=== PATIENT | male | born 1940 | race Caucasian/White ===

== ENCOUNTER 2016-10-16 13:35 | Day surgery (SDC) | payer OTHER, MEDICAID ==
[2016-10-16] MEDS ORDERED: LR 1,000 ML IV ONE (14:36)
--- NOTE | 2016-10-16 14:55 | PDANEPAE ---
ANE Past Medical History - Cardiovascular History Hx Hypertension: Yes Hx Arrhythmias: Yes Hx Chest Pain: No Hx Coronary Artery / Peripheral Vascular Disease: No Hx CHF / Valvular Disease: No Hx Palpitations: Yes - Pulmonary History Hx COPD: No Hx Asthma/Reactive Airway Disease: No Hx Recent Upper Respiratory Infection: No Hx Oxygen in Use at Home: No - Neurologic History Hx Cerebrovascular Accident: No Hx Seizures: No Hx Dementia: No - Endocrine History Hx Diabetes: No - Renal History Hx Renal Disorders: No - Liver History Hx Hepatic Disorders: No - Neurological & Psychiatric Hx Hx Neurological and Psychiatric Disorders: No - Congenital Disorder History Hx Congenital Disorders: No - GI History Hx Gastrointestinal Disorders: Yes - Chronic Pain History Chronic Pain: No ANE Review of Systems Review of Systems: SOB with walking related to radiation pneumonitis and pulmonary metastases. Colon cancer with mets to lungs only. URI x4 days, resolved 2 days ago - sore throat,post-nasal drip, dry cough. - Exercise capacity METS (RN): 2 METS - Systems Constitutional: Reports: weakness, weight loss EENMT: Reports: nose congestion (resolving) Respiratory: Reports: cough (dry - resolving), shortness of breath Gastrointestinal: Reports: other (ulcers) ANE Patient History - Allergies Allergies/Adverse Reactions: POLLENS, GRASSES Allergy (Mild, Uncoded 02/07/16 10:50) Other-Enter Comments - Home Medications Home Medications: CIMETIDINE 300 mg PO TID 10/03/12 [Last Taken 04/11/13 11:59] Metoprolol Tartrate 25 mg PO DAILY 10/03/12 [Last Taken 04/11/13 11:59] Louise Allergy 180 - 240 mg PO DAILY PRN 02/07/16 [Last Taken Unknown] Aspirin 81mg (*) 81 mg PO DAILY 02/07/16 [Last Taken Unknown] Dietary Supplement 3,000 mg PO DAILY 02/07/16 [Last Taken Unknown] Dietary Supplement 15 drops PO DAILY 02/07/16 [Last Taken Unknown] Fish Oil 1 tab PO DAILY 02/07/16 [Last Taken Unknown] Glucosamine 3 tab PO DAILY 02/07/16 [Last Taken Unknown] IBUPROFEN 400 mg PO Q8H PRN 02/07/16 [Last Taken Unknown] Lisinopril 20 mg PO DAILY 02/07/16 [Last Taken Unknown] Prednisone 15 mg PO DAILY 02/07/16 [Last Taken Unknown] Proscar 5 MG (*) 5 mg PO DAILY 02/07/16 [Last Taken Unknown] Saw [place] 820 mg PO DAILY 02/07/16 [Last Taken Unknown] - NPO status NPO Since - Liquids (Date): 10/16/16 NPO Since - Liquids (Time): 10:00 (water with pills) NPO Since - Solids (Date): 10/16/16 NPO Since - Solids (Time): 09:00 (nectarines) - Anes Hx Anes Hx: no prior problems - Smoking Hx Smoking Status: Former smoker (quit x33 years) - Family Anes Hx Family Anes Hx: none Family Hx Anesthesia Complications: NONE ANE Labs/Vital Signs - Vital Signs Blood Pressure: 162/90 Heart Rate: 42 O2 Sat (%): 95 Height: 167.64 cm Weight: 61.235 kg ANE Physical Exam - Airway Neck exam: FROM Mallampati Score: Class 3 Mouth exam: poor dentition, small mouth opening - Pulmonary Pulmonary: expiratory wheeze - Cardiovascular Cardiovascular: regular rate and rhythym - ASA Status ASA Status: IV (current metastatic colon cancer on chemotherapy) ANE Anesthesia Plan Anesthesia Plan: GA with mask
[2016-10-16] MEDS ORDERED: ALBUTEROL 3 ML DEYVIAL IH ONE (15:05)
--- NOTE | 2016-10-16 15:05 | PDGENHP ---
History & Physical Chief Complaint: abdo pain History of Present Illness: abdo pain and RUQ pain Pertinent Past, Social, Family History: phx alpa met from colon. doesn't smkoe nor drink now Relevant Physical Exam: s1s2, reg rate, +murmer. exp wheeze, no rales no rhonchi. +BS, soft, tender Cardiorespiratory Assessment: exp wheeze, s1 s2 +BS, soft tender
[2016-10-16] MEDS ORDERED: LIDOCAINE 2% 5 ML SDV ONE (15:16)
[2016-10-16] MEDS ORDERED: PROPOFOL/EMULSION 500 MG/50 ML BOTTLE IV ONE (15:16)
[2016-10-16] MEDS ORDERED: fentaNYL 100 MCG/2 ML INJ ONE (15:16)
[2016-10-16] MEDS ORDERED: NALOXONE HCL 0.4 MG/ML INJ IVP PRN (15:51)
[2016-10-16] MEDS ORDERED: ALBUTEROL 3 ML DEYVIAL IH PRN (15:51)
[2016-10-16] MEDS ORDERED: PROMETHAZINE HCL 25 MG/ML INJ IVP PRN (15:51)
[2016-10-16] MEDS ORDERED: ENALAPRILAT DIHYDRATE 1.25 MG/ML VIAL IVP PRN (15:51)
[2016-10-16] MEDS ORDERED: DEXAMETHASONE 4 MG/ML VIAL IVP PRN (15:51)
[2016-10-16] MEDS ORDERED: fentaNYL 100 MCG/2 ML INJ IVP PRN (15:51)
[2016-10-16] MEDS ORDERED: ACETAMINOPHEN 500 MG TAB PO PRN (15:51)
--- NOTE | 2016-10-16 15:59 | POSTANESTH ---
Post Anesthetic Evaluation Cardiovascular Status: Normal, Stable Respiratory Status: Similar to Pre-op Cond. Level of Consciousness/Mental Status: Can Participate in Eval, Moderately Sleepy Pain Control: Adequate, Prn Tx Ordered Nausea/Vomiting Control: Adequate, Prn Tx Ordered Complications Possibly Related to Anesthesia: None Noted
[2016-10-16 16:13] VITALS: TEMP 97.5
--- NOTE | 2016-10-16 16:23 | POSTOPPROG ---
Post Op Note Date of Operation: 10/16/16 Surgeon: Bk Alvarado Anesthesiologist: lori Anesthesia: Other (Specify) (iv general) Pre-op Diagnosis: abdo pain Post-op Diagnosis: gastritis Indication: abdo pain Procedure: egd and bx Findings: gastritis Inf/Abcess present in the surg proc area at time of surgery?: No EBL: Minimal (few ml) Complications: none immediate
[2016-10-16 16:59] VITALS: BP 149/83; PULSE 45; RESP 14; O2SAT 94
--- NOTE | 2016-10-16 17:41 | GPN ---
[f rep st] PROCEDURE NOTE DATE OF PROCEDURE: 10/16/2016 PROCEDURE: Esophagogastroduodenoscopy and biopsy. INDICATION: Abdominal pain, both epigastric and right upper quadrant. PREOPERATIVE DIAGNOSIS: Rule out ulcer. POSTOPERATIVE DIAGNOSES: 1. Normal esophagus. 2. Mild gastritis with no significant ulceration and no masses. 3. Normal duodenum with no ulcerations. 4. Large Bochdalek hernia with a significant portion of the stomach and intestines in the chest cav ity. INFORMED CONSENT: I had a detailed discussed with the patient regarding the procedure, alternatives , benefits, and risks including bleeding, perforation, infection, risk of medication. Informed cons ent was signed and witnessed. COMPLICATIONS: None immediate. MEDICATIONS: IV general per Leydi Mcintosh MD. DESCRIPTION OF PROCEDURE: After adequate anesthesia, patient remained in left lateral decubitus pos ition, and forward viewing upper endoscope was inserted in the oropharynx and advanced under direct visualization down the esophagus. The esophageal mucosa was normal. The endoscope was advanced in the stomach. There was obviously significant deformity with a good portion of the stomach higher up in the chest cavity. The patient does have a known Bochdalek hernia. It was difficult to access t he antrum, but by advancing the scope almost to the hilt, I was able to advance around this large ab normally shaped stomach and through the pylorus. The duodenal bulb and sweep were normal. I withdr ew the stomach back into the antrum. There was some mild gastritis in the antrum and distal body. Biopsies were obtained. There were no masses or ulcerations. The endoscope was completely withdraw n confirming the above findings. The patient tolerated the procedure well and was transferred to [facility] in satisfactory condition. IMPRESSION: 1. [id number] gastritis. 2. Normal esophagus. 3. Normal duodenal. 4. No ulcerations and no masses. 5. Large Bochdalek hernia with a significant portion of the stomach up in the chest cavity. This h as been documented on previous imaging studies. RECOMMENDATIONS: 1. Continue PPI therapy. 2. As much as possible try to avoid aspirin and nonsteroidal anti-inflammatory drugs except as used for cardiac or stroke prevention. 3. If symptoms worsen, come to the office for further evaluation. 4. Further recommendations to follow results of above and clinical course. 5. Follow up with primary care and referring physician as scheduled. Thank you for allowing me to participate in this patient's healthcare. Do not hesitate to call with any questions. /[id number]/MODL
== END 2016-10-16 17:20 | disposition home or self-care (01) ==
LOC: FSGY 13:35
PROVIDERS: ATTEND Internal Medicine Gastroenterology
PROC: 0DB68ZX Excision of Stomach, Via Natural or Artificial Opening Endoscopic, Diagnostic (ICD-10-PCS; principal; 2016-10-16 15:00)
DX: K29.70 Gastritis, unspecified, without bleeding (principal); K44.9 Diaphragmatic hernia without obstruction or gangrene; C18.9 Malignant neoplasm of colon, unspecified; C78.00 Secondary malignant neoplasm of unspecified lung; Z87.891 Personal history of nicotine dependence
CPT/HCPCS: J2704; J3010

== ENCOUNTER → 2016-11-10 | Outpatient (CLI) | payer OTHER, MEDICAID ==
[~2016-11-10] MED LIST: GADOBUTROL 10 ML VIAL IVP ONE
== END ==
LOC: FIMAGING 08:27
PROVIDERS: ATTEND Internal Medicine Hematology & Oncology
DX: R94.02 Abnormal brain scan (principal); R41.0 Disorientation, unspecified; C18.4 Malignant neoplasm of transverse colon
CPT/HCPCS: 70553; A9585

== ENCOUNTER 2016-11-22 10:50 | Emergency (ER) | payer OTHER, MEDICAID ==
[2016-11-22 11:02] VITALS: RESP 16
[2016-11-22] MEDS ORDERED: NS 500 ML IV ONE (11:47)
--- NOTE | 2016-11-22 12:00 | EDPHY ---
H & P Time Seen by Provider: 11/22/16 11:07 HPI/ROS: HPI Brain tumor, tingling in hands. 76-year-old male by private vehicle with family member. This patient has a history of colon cancer with extensive metastasis to the liver, lungs and brain. He has a 3 cm x 3 cm x 3 cm metastasis to his right parietal area that was imaged last on an MRI from November 10. He was to have a a craniectomy removal of this right parietal mass this last Wednesday. He ended up declining this surgery. He was sent home against his neurosurgeons advice. This is Dr. Maldonado. He was told to return to the emergency department for any nausea, vomiting or neurologic symptoms. He reports that last night he had a transient episode of some tingling in his left hand nausea but no vomiting. He had another 1 of these episodes this morning. On presentation to the emergency department he denies any nausea. He has not had any vomiting he denies any tingling in his extremities or other neurologic symptoms. ROS: Constitutional: No fever, no chills. No weakness. Eyes: No discharge. No changes in vision. ENT: No sore throat. No nasal congestion or rhinorrhea. Respiratory: No cough. No shortness of breath. Cardiac: No chest pain, no palpitations. Gastrointestinal: No abdominal pain, no vomiting, no diarrhea. As above. Genitourinary: No hematuria. No dysuria or increased frequency with urination. Musculoskeletal: No back pain. No neck pain. No myalgias or arthralgias. Skin: No rashes. Neurological: No headache. No focal weakness or altered sensation. As above. Past medical history: Hypertension, otherwise as above. He is currently on Decadron. Social history: Here with his friend. Nonsmoker. Denies alcohol. Physical Exam: General Appearance: Alert, no distress. Frail and thin in appearance. This patient is responding to questions appropriately and in full sentences. This patient appears well-hydrated and well-nourished. Eyes: Pupils equal and round no pallor or injection. No lid edema, erythema or injection. Respiratory: There are no retractions, lungs are clear to auscultation with good air movement bilaterally. Cardiovascular: Regular rate and rhythm. No murmur. Gastrointestinal: Abdomen is soft and nontender, no masses, bowel sounds normal. No focal tenderness at McBurney's point. No Mathew sign. Neurological: Motor sensory function is grossly intact. Cranial nerves are normal. Gait is normal. Skin: Warm and dry, no rashes. Musculoskeletal: Neck is supple and nontender. Extremities are symmetrical. All joints range without pain or impingement. Psychiatric: No agitation. No depression. Database: EKG: EKG time is 12:15 a.m.: EKG shows a narrow complex, sinus bradycardia with ventricular rate of 44. 1st degree AV block noted. Right bundle branch block noted. No ST, T-wave changes indicative of acute ischemic or injury pattern. No evidence of right heart strain. Interpreted by me. Imaging: Procedures: Emergency department course: MRI with and without contrast of the brain from November 10 reviewed by myself. His vital signs were reviewed. 12 noon, spoke with his neurosurgeon Dr. Maldonado. Dr. Maldonado requested that if he is not on Keppra he put on Keppra at 750 mg daily. He is to continue his Decadron as prescribed and see Dr. Maldonado in the office early this week. Dr. Maldonado does not feel that the patient requires imaging in the emergency department. An EKG will be performed basic labs and troponin checked. If this is unremarkable, plan will be to discharge him home with follow up with Dr. Maldonado as above. 1:20 p.m., patient re-evaluated. He is resting comfortably at this time. Results of his blood work as well as EKG were discussed with him and his friend. He feels comfortable going home and I feel he is safe for discharge. He is to follow up with his neurosurgeon as above tomorrow for further management. Return to emergency department precautions were discussed with him. All of his questions were answered. He was discharged home in good condition. Differential Diagnosis: The differential diagnosis on this patient includes but is not limited to metastatic colon cancer, brain metastasis, nausea, transient paresthesia. CVA, TIA, acute coronary syndrome unlikely. This represents a partial list of diagnoses considered. These considerations are based on history, physical exam , past history, reassessment and diagnostic testing. Smoking Status: Former smoker Constitutional: Initial Vital Signs Temperature (C) 36.5 C 11/22/16 11:00 Heart Rate 45 L 11/22/16 11:00 Respiratory Rate 16 11/22/16 11:00 Blood Pressure 148/74 H 11/22/16 11:00 O2 Sat (%) 95 11/22/16 11:00 O2 Delivery Mode Room Air Allergies/Adverse Reactions: POLLENS, GRASSES Allergy (Mild, Uncoded 02/07/16 10:50) Other-Enter Comments Home Medications: Medication Instructions Recorded CIMETIDINE 300 mg PO TID 10/03/12 Metoprolol Tartrate 25 mg PO DAILY 10/03/12 Louise Allergy 180 - 240 mg PO DAILY PRN 02/07/16 Aspirin 81mg (*) 81 mg PO DAILY 02/07/16 Dietary Supplement 3,000 mg PO DAILY 02/07/16 Dietary Supplement 15 drops PO DAILY 02/07/16 Fish Oil 1 tab PO DAILY 02/07/16 Glucosamine 3 tab PO DAILY 02/07/16 IBUPROFEN 400 mg PO Q8H PRN 02/07/16 Lisinopril 20 mg PO DAILY 02/07/16 Prednisone 15 mg PO DAILY 02/07/16 Proscar 5 MG (*) 5 mg PO DAILY 02/07/16 Saw [place] 820 mg PO DAILY 02/07/16 Medical Decision Making - Data Points Laboratory Results: Laboratory Results 11/22/16 12:00 11/22/16 12:00 Medications Given: Discontinued Medications Sodium Chloride (Ns) 500 mls @ 0 mls/hr IV ONCE ONE; Wide Open PRN Reason: Protocol Stop: 11/22/16 11:48 Last Admin: 11/22/16 12:04 Dose: 500 mls Departure - Departure Disposition: Home, Routine, Self-Care Clinical Impression: Brain mass, Metastatic colon cancer to liver, Transient paresthesia, Nausea Condition: Good Instructions: Paresthesia (ED) Additional Instructions: Read and follow provided instructions. Follow-up with your neurosurgeon as discussed within the next 1-2 days. He is aware that your here in the emergency department. He is expecting to see you in that time frame. Call his office tomorrow morning at 9:00 a.m. for appointment time. Return to the emergency department for worsening headache, vomiting, loss of sensation or weakness in your extremities, chest pain, shortness of breath or other serious concerns. Referrals: Walter Maldonado MD [Medical Doctor] - As per Instructions
[2016-11-22 12:11] LABS: % IMMATURE GRANULYOCYTES 0.9 % (0.0-1.1); ABSOLUTE IMMATURE GRANULOCYTES 0.07 10^3/uL (0.00-0.10); ABSOLUTE NRBC COUNT 0.03 10^3/uL (0-0.01); ADD DIFF? NO; ADD MORPH? NO; ADD SCAN? NO; ATYPICAL LYMPHOCYTE FLAG 0 (0-99); FRAGMENT RBC FLAG 0 (0-99); HEMATOCRIT 28.3 % (40.0-51.0); LEFT SHIFT FLG 10 (0-99); LIPEMIA HEMOLYSIS FLAG 90 (0-99); MEAN CELL HEMOGLOBIN 37.2 pg (27.9-34.1); MEAN CELL HEMOGLOBIN CONCENTR. 35.3 g/dL (32.4-36.7); MEAN CELL VOLUME 105.2 fL (81.5-99.8); MEAN PLATELET VOLUME 10.6 fL (8.7-11.7); NRBC-AUTO% 0.4 % (0.0-0.2); PLATELET CLUMPS FLAG 0 (0-99); PLATELET COUNT 139 10^3/uL (150-400); RED BLOOD CELL COUNT 2.69 10^6/uL (4.40-6.38)
--- NOTE | 2016-11-22 12:17 | CPEKG ---
Heart Rate: 44 RR Interval: 1364 P-R Interval: 232 QRSD Interval: 130 QT Interval: 520 QTC Interval: 445 P [place]: 32 QRS [place]: 33 T Wave [place]: 17 EKG Severity - ABNORMAL ECG - EKG Impression: SINUS BRADYCARDIA EKG Impression: FIRST DEGREE AV BLOCK EKG Impression: RIGHT BUNDLE BRANCH BLOCK Electronically Signed By: Mj Ren 22-Nov-2016 15:33:43
[2016-11-22 12:26] LABS: ANION GAP 10 mEq/L (8-16); CALCIUM 8.2 mg/dL (8.5-10.4); CARBON DIOXIDE 20 mEq/l (22-31); CHLORIDE 108 mEq/L (97-110); GLOMERULAR FILTRATION RATE > 60; GLUCOSE 146 mg/dL (70-100); POTASSIUM 4.6 mEq/L (3.5-5.2); SODIUM 138 mEq/L (134-144)
[2016-11-22 12:38] LABS: TROPONIN I < 0.012 ng/mL (0-0.034)
[2016-11-22 13:43] VITALS: BP 106/78; PULSE 52; TEMP 98.1; O2SAT 96
== END 2016-11-22 13:43 | disposition home or self-care (01) ==
DX: C79.31 Secondary malignant neoplasm of brain (principal); C18.9 Malignant neoplasm of colon, unspecified; C78.7 Secondary malignant neoplasm of liver and intrahepatic bile duct; C78.00 Secondary malignant neoplasm of unspecified lung; I10 Essential (primary) hypertension; E86.9 Volume depletion, unspecified; Z79.82 Long term (current) use of aspirin; Z87.891 Personal history of nicotine dependence

== ENCOUNTER → 2016-12-16 | Outpatient (CLI) | payer OTHER, MEDICAID | LOC: BHFA 13:30 | PROVIDERS: ATTEND Internal Medicine Cardiovascular Disease | DX: R06.02 Shortness of breath (principal); I10 Essential (primary) hypertension; I47.1 Supraventricular tachycardia; R00.2 Palpitations ==

== ENCOUNTER → 2016-12-28 | Outpatient (CLI) | payer OTHER, MEDICAID | LOC: BHFA 09:15 | PROVIDERS: ATTEND Internal Medicine Cardiovascular Disease ==

== ENCOUNTER → 2017-02-04 | Outpatient (CLI) | payer OTHER, MEDICAID | LOC: FIMAGING 14:33 | PROVIDERS: ATTEND Internal Medicine Hematology & Oncology | DX: C79.31 Secondary malignant neoplasm of brain (principal); J01.00 Acute maxillary sinusitis, unspecified | CPT/HCPCS: 70553; A9585 ==

== ENCOUNTER → 2017-04-15 | Outpatient (CLI) | payer OTHER, MEDICAID | LOC: FIMAGING 15:29 | PROVIDERS: ATTEND Internal Medicine Hematology & Oncology | DX: Z08 Encounter for follow-up examination after completed treatment for malignant neoplasm (principal); C79.31 Secondary malignant neoplasm of brain; C18.9 Malignant neoplasm of colon, unspecified | CPT/HCPCS: 70553; A9585 ==

== ENCOUNTER 2017-06-23 12:32 | Inpatient (IN) | payer OTHER, MEDICAID ==
--- NOTE | 2017-06-23 13:37 | CPEKG ---
Heart Rate: 123 RR Interval: 488 QRSD Interval: 128 QT Interval: 372 QTC Interval: 533 QRS [place]: 104 T Wave [place]: -33 EKG Severity - ABNORMAL ECG - EKG Impression: WIDE COMPLEX TACHYCARDIA EKG Impression: NONSPECIFIC INTRAVENTRICULAR CONDUCTION DELAY Electronically Signed By: Wiliam Meade 23-Jun-2017 14:44:42
--- NOTE | 2017-06-23 13:57 | EDPHY ---
H & P Time Seen by Provider: 06/23/17 13:50 HPI/ROS: Chief complaint. Balance problems, weakness, falls HPI. 76-year-old male presents emergency department after multiple falls in the last 24 hr. He fell twice yesterday and once today. He tells me he spent the night on the floor and could not get up. Generalized weakness. Decreased appetite. Denies injury from his falls. No chest pain, shortness of breath, abdominal pain. Increasing balance and weakness problems. Patient has metastatic colon cancer with mets to brain. MRI on April 15 shows progressive intracranial metastatic disease. He is no longer taking any medication for brain edema. ROS Constitutional. Generalized weakness Eyes. no problems with vision ENT. no sore throat, no nasal drainage Cardiovascular. no chest pain Respiratory. no shortness of breath, no cough Abdominal. no abdominal pain, no nausea/vomiting, no diarrhea . no problems urinating MS. no calf pain/swelling, no neck/back pain, no joint pain Skin. no rash Lymph. no swollen glands Neuro. Balance problems Past Medical/Surgical History: Colon cancer with mets to lung and brain, hypertension Social History: Lives alone. Nonsmoker, single, no alcohol Smoking Status: Former smoker Physical Exam: General Appearance: Alert well-developed male mild distress vital signs are stable Eyes: Pupils equal and round no pallor or injection. ENT, mucous membranes are dry Respiratory: There are no retractions, lungs are clear to auscultation. Cardiovascular: Regular rate and rhythm. Gastrointestinal: Abdomen is soft and nontender, no masses, bowel sounds normal. Neurological: Awake and alert, sensory and motor exams grossly normal. Skin: Warm and dry, no rashes. Musculoskeletal: Neck is supple nontender. Extremities symmetrical, full range of motion. Psychiatric: Patient is oriented X 3, there is no agitation. Constitutional: Initial Vital Signs Temperature (C) 37 C 06/23/17 12:39 Heart Rate 75 06/23/17 12:39 Respiratory Rate 18 06/23/17 12:39 Blood Pressure 134/81 H 06/23/17 12:39 O2 Sat (%) 95 06/23/17 12:39 O2 Delivery Mode Room Air Allergies/Adverse Reactions: POLLENS, GRASSES Allergy (Mild, Uncoded 06/23/17 12:54) Other-Enter Comments Home Medications: Medication Instructions Recorded CIMETIDINE 300 mg PO TID 10/03/12 Metoprolol Tartrate 25 mg PO DAILY 10/03/12 Aspirin 81mg (*) 81 mg PO DAILY 02/07/16 Lisinopril 20 mg PO DAILY 02/07/16 Proscar 5 MG (*) 5 mg PO DAILY 02/07/16 [place] 06/23/17 Medical Decision Making - Diagnostics EKG Interpretation: EKG interpreted by me shows wide complex tachycardia that appears to be junctional. Normal axes. No significant ST elevation or depression. Interventricular conduction delay. Rate is 123 On the monitor patient's heart rate goes from 47-125. Imaging Results: Imaging Impressions Chest X-Ray 06/23/17 14:14 Impression: Increase in opacification and scarring in the medial right lower lobe and middle lobe which could represent progressive scarring, atelectasis, or infiltrate. Clearing of the right upper lobe infiltrate. Stable cardiomegaly. Other chronic findings as above. Head CT 06/23/17 14:15 Impression: 1. Interval progression of intracranial metastatic lesions on the right with increase in vasogenic edema and right to left shift. 2. No acute intracranial abnormality seen. Findings discussed with Wiliam Meade M.D. at 15:09 hour, 06/23/2017. Chest x-ray interpreted by me shows metastasis to the right lung. CT brain without contrast reviewed by me and discussed with Dr. Jewell shows edema with right to left shift Procedures: IV normal saline, monitor ED Course/Re-evaluation: Re-evaluation 3:15 p.m.. Patient and I discussed imaging and lab results. We discussed treatment plan including use of IV Decadron and need for admission. He expresses understanding and agreement Patient is given IV Decadron I consulted discussed case with Dr. Desai, hospitalist, who agrees to the admission This I consulted and discussed the case with Dr. Gillette who agrees with care and will see the patient in consultation Differential Diagnosis: The patient has known brain metastasis. He is not on Decadron any longer for the past 2 months. He now has balance troubles. I considered intracranial bleeding as well as further metastasis and vasogenic edema. - Data Points Laboratory Results: Laboratory Results 06/23/17 13:37 06/23/17 13:37 06/23/17 06/23/17 06/23/17 13:37 13:37 13:37 WBC 3.80 10^3/uL 10^3/uL (3.80-9.50) RBC 3.20 10^6/uL L 10^6/uL (4.40-6.38) Hgb 10.8 g/dL L g/dL (13.7-17.5) Hct 31.9 % L % (40.0-51.0) MCV 99.7 fL fL (81.5-99.8) MCH 33.8 pg pg (27.9-34.1) MCHC 33.9 g/dL g/dL (32.4-36.7) RDW 13.2 % % (11.5-15.2) Plt Count 188 10^3/uL 10^3/uL (150-400) MPV 10.8 fL fL (8.7-11.7) Neut % (Auto) 69.1 % % (39.3-74.2) Lymph % (Auto) 20.0 % % (15.0-45.0) Bond % (Auto) 9.2 % % (4.5-13.0) Eos % (Auto) 1.1 % % (0.6-7.6) Baso % (Auto) 0.3 % % (0.3-1.7) Nucleat RBC Rel Count 0.0 % % (0.0-0.2) Absolute Neuts (auto) 2.63 10^3/uL 10^3/uL (1.70-6.50) Absolute Lymphs (auto) 0.76 10^3/uL L 10^3/uL (1.00-3.00) Absolute Monos (auto) 0.35 10^3/uL 10^3/uL (0.30-0.80) Absolute Eos (auto) 0.04 10^3/uL 10^3/uL (0.03-0.40) Absolute Basos (auto) 0.01 10^3/uL L 10^3/uL (0.02-0.10) Absolute Nucleated RBC 0.00 10^3/uL 10^3/uL (0-0.01) Immature Gran % 0.3 % % (0.0-1.1) Immature Gran # 0.01 10^3/uL 10^3/uL (0.00-0.10) PT 14.0 SEC SEC (12.0-15.0) INR 1.06 (0.83-1.16) Sodium 139 mEq/L mEq/L (135-145) Potassium 3.9 mEq/L mEq/L (3.5-5.2) Chloride 104 mEq/L mEq/L (97-110) Carbon Dioxide 23 mEq/l mEq/l (22-31) Anion Gap 12 mEq/L mEq/L (8-16) BUN 22 mg/dL mg/dL (7-23) Creatinine 1.3 mg/dL mg/dL (0.7-1.3) Estimated GFR 54 Glucose 106 mg/dL H mg/dL (70-100) Calcium 9.7 mg/dL mg/dL (8.5-10.4) Creatine Kinase 924 IU/L H IU/L (0-224) CK-MB (CK-2) Fraction 5.47 ng/mL H ng/mL (0.00-4.55) CK-MB (CK-2) % 0.6 % % (0.0-4.0) Creatine Kinase Interp NEGATIVE (NEGATIVE) Troponin I < 0.012 ng/mL ng/mL (0.000-0.034) Medications Given: Discontinued Medications Sodium Chloride (Ns) 1,000 mls @ 0 mls/hr IV ONCE ONE; Wide Open PRN Reason: Protocol Stop: 06/23/17 14:15 Last Admin: 06/23/17 14:31 Dose: 1,000 mls Sodium Chloride (Ns) 1,000 mls @ 0 mls/hr IV EDNOW ONE; Wide [place] PRN Reason: Protocol Stop: 06/23/17 14:15 Last Admin: 06/23/17 14:31 Dose: 1,000 mls Sodium Chloride (Ns) 1,000 mls @ 0 mls/hr IV ONCE ONE PRN Reason: Wide Open Stop: 06/23/17 14:20 Last Admin: 06/23/17 14:29 Dose: Not Given Departure - Departure Disposition: [facility] Clinical Impression: Brain metastasis Rhabdomyolysis Qualifiers: Rhabdomyolysis type: traumatic Encounter type: initial encounter Qualified Code (s): T79.6XXA - Traumatic ischemia of muscle, initial encounter Condition: Fair
[2017-06-23] MEDS ORDERED: NS 1,000 ML IV ONE ×3 (14:14→14:19)
[2017-06-23 14:22] LABS: PLATELET COUNT 188 10^3/uL (150-400)
[2017-06-23 14:27] LABS: CREATINE KINASE 924 IU/L (0-224)
[2017-06-23 14:33] LABS: INR 1.06 (0.83-1.16)
--- NOTE | 2017-06-23 15:16 | CPEKG ---
Heart Rate: 91 RR Interval: 659 QRSD Interval: 132 QT Interval: 444 QTC Interval: 547 QRS [place]: 62 T Wave [place]: -9 EKG Severity - ABNORMAL ECG - EKG Impression: ATRIAL FIBRILLATION EKG Impression: RIGHT BUNDLE BRANCH BLOCK Electronically Signed For: Josh Terry 23-Jun-2017 15:28:41
--- NOTE | 2017-06-23 15:19 | CPEKG ---
Heart Rate: 49 RR Interval: 1224 P-R Interval: 252 QRSD Interval: 134 QT Interval: 436 QTC Interval: 394 P [place]: 54 QRS [place]: 51 T Wave [place]: 22 EKG Severity - ABNORMAL ECG - EKG Impression: SINUS BRADYCARDIA EKG Impression: FIRST DEGREE AV BLOCK EKG Impression: RIGHT BUNDLE BRANCH BLOCK Electronically Signed For: Josh Terry 23-Jun-2017 15:29:10
[2017-06-23] MEDS ORDERED: DEXAMETHASONE 10 MG/ML VIAL IVP ONE (15:22)
[2017-06-23] MEDS ORDERED: ONDANSETRON 4 MG/2 ML VIAL IVP PRN (16:04)
[2017-06-23] MEDS ORDERED: ONDANSETRON DISINTEGRATING 4 MG TAB PO PRN (16:04)
[2017-06-23] MEDS ORDERED: NS 1,000 ML IV SCH (16:15)
--- NOTE | 2017-06-23 17:25 | ASMTLACE ---
CONSTANTINE Acuity / Level of Answers: Yes Care: Did the patient have an inpatient admission? Comorbidities - select Answers: Any tumor (including all that apply lymphoma or leukemia) History of falls # of Emergency department Answers: 1-2 visits in the last 6 months Score: 9 Date Signed: 06/23/2017 05:24 PM Electronically Signed By:Analisa Flores RN
[2017-06-23] MEDS ORDERED: TIPIRACIL HCL PO SCH (17:30)
[2017-06-23] MEDS ORDERED: TRIFLURIDINE PO SCH (17:30)
--- NOTE | 2017-06-23 17:31 | GCON ---
[f rep st] CONSULTATION CONSULTATION/HISTORY AND PHYSICAL DATE OF CONSULTATION: 06/23/2017 The patient is seen in the emergency department on 06/23/2017 at 1620 by neurosurgical service. CHIEF COMPLAINT: Balance problems, weakness, falls. HISTORY OF PRESENT ILLNESS: The patient is a 76-year-old male who is a prior patient of Dr. Walter courtney at [facility] who presented to the emergency department after multiple fall s in the last 24 hours. He fell twice yesterday and once today. He told the emergency room physicia n that he spent the night on the floor and could not get up. His general complaints are that of weak ness. He has no focal weakness, just a generalized feeling. He states he has had a decreased appeti te as well. He was on Decadron, but there are reports that he has discontinued this. The patient wa s seen in the emergency department and the emergency room physician ordered a CT scan of the head and we were consulted from Neurosurgery due to its findings. The ER physician, Dr. Meade, gave him 10 mg of Decadron. 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 His last MRI of the brain was in April, which showed progressive intracranial metastatic disease. He has a pending MRI of the brain today. He is no longer taking any other medications prescribed f or some edema that he has, which was the Decadron. The patient denies any loss of bowel or bladder c ontrol. No problems with his gait. He does have balance issues. REVIEW OF SYSTEMS: A complete review of systems as noted above, noted for the following: No headache . No double vision. Some generalized weakness. No changes in vision. The patient denies any cough or sore throat. No shortness of breath. No chest pain. No abdominal pain. No nausea, vomiting. No diarrhea. No problems with urination or moving his bowels. He denies any significant rash. No s uicidality or homicidality. PAST MEDICAL HISTORY AND SURGICAL HISTORY: 1. Colon cancer with mets to the lung and brain. 2. History of apparent craniotomy with debulking. 3. Hypertension. MEDICATIONS: Please see med rec form. ALLERGIES: Pollen grasses. SOCIAL HISTORY: Patient lives alone. He is a nonsmoker. He is single and does not drink any alcoho l. He was a former smoker in the past. IMMUNIZATIONS: Reported up to date. TRAVEL: No recent travel. PHYSICAL EXAM: GENERAL: This is an awake, alert and oriented male, in no acute distress. MOST RECE NT VITAL SIGNS: Blood pressure 177/74 with a MAP of 108, heart rate of 50, respiratory rate of 18, 9 5% on room air. Most recent temperature 36.5. HEENT: Normocephalic, atraumatic. Pupils are equal, round, reactive to light. EOMs intact. Full visual elena by confrontation. Ears are patent. Nos e is patent. NECK: Soft and supple. No midline tenderness. Full range of motion in flexion, exten jacquie, lateral bending and rotation. RESPIRATORY: Deferred. CARDIAC: Deferred. ABDOMEN: Soft, no ntender. No peritoneal signs. : Deferred. RECTAL: Deferred. NEURO: The patient is awake, susu rt, oriented to name, place, location, date, time, and situation. Memory is intact to immediate, pas t, and current events. Speech: No aphasia, dysarthria, dysphonia. Cranial nerves 2-[address] Motor: Patient has 5/5 strength in all muscle groups bilateral upper and lower extremities to i nclude deltoids, biceps, triceps, brachioradialis, wrist flexion extensors, flooring helper intrinsic fingers, i liopsoas, quadriceps, hamstring, plantar flexion, dorsiflexion, EHL testing. Sensation is grossly in tact to light touch throughout all dermatome distributions upper and lower extremities. Negative str aight leg raise. Negative GAL test. MEDICAL DECISION MAKING: LABORATORY TESTS: Obtained 06/23/2017, shows a white count of 3.8 with a hemoglobin and hematocrit o f 10.8 and 31.9 with a platelet count of 188. Coags on 06/23/2017 shows a PT of 14.0, INR of 1.06. Chemistry on 06/23/2017: Sodium 139, potassium 3.9, chloride 104, CO2 23, BUN 22, creatinine 1.3, an d glucose 106. Creatine kinase was negative. Troponin less than 0.012. DIAGNOSTIC STUDIES: Chest x-ray obtained 06/23/2017 shows increase in opacifications, scarring in th e medial right lower lobe and middle lobe which could represent progressive scarring, atelectasis or infiltrate. Clearing of the right upper lobe infiltrate, stable cardiomegaly. Other chronic finding s such as the large hernia noted on the left is similar in appearance and dextrose scoliotic curvatur e of the spine was noted. CT scan of the head obtained 06/23/2017 at 1415, shows interval progression of intracranial metastase s and metastatic lesions in the right with increase in vasogenic edema and kirxk-[id number] shift. No i ntracranial hemorrhage noted. IMPRESSION: 1. History of colon cancer with metastasis to lung and brain. 2. New onset of weakness that is generalized, as well as recurrent falls. 3. Interval progression of metastatic lesions to the brain noted with increase in vasogenic edema. PLAN/DISCUSSION: The patient is a 76-year-old male who has the unfortunate diagnosis of metastatic c olon cancer. He has been a patient of Dr. Maldonado who will see the patient as well. He will be admit hakan to the internal medicine service. The ER physician gave the patient 10 mg of Decadron. We will continue with 4 mg q.6 of Decadron. He will need an MRI of the brain with and without contrast as we ll. If these orders have not been placed I will place them in the computer. The patient be admitted , likely oncology consulted as well. I did relay this information to the patient as well. He unders tood and agreed. All questions and concerns were answered. /[id number]/MODL
--- NOTE | 2017-06-23 17:49 | ASMTCMCOM ---
CM Note CM Note Notes: Patient to be admitted with metastatic (brain and lung) colon cancer. Lives alone and has had several falls over the past 24 hours. Stopped Decadron 2 months ago. Swelling on head CT with shift, balance issues increasing. Patient lives alone in an apartment in [facility]. I have met with patient's brother Karlos while patient was in the restroom/prior to his transfer upstairs. He is very supportive and lives close by. Patient has a case management assistant with forensic social worker, Joanne Alexander who has worked with patient for over 3 years. Karlos has contacted her regarding admission Patient has been resistant to "hospice" in the past and has desired to stay home without additional help. Karlos states that patient was at [facility] in December after surgery and did like his stay there. Karlos believes that patient may consider transition back to [facility] if he is eligible. I spoke with Karlos about possible palliative care consult while patient is in the hospital, if patient is open to this. Karlos believes that talking with and including Joanne (MAUREEN) may be helpful. CM to follow and be available with any discharge planning and referrals prn Date Signed: 06/23/2017 05:48 PM Electronically Signed By:Analisa Flores RN
--- NOTE | 2017-06-23 17:56 | GHP ---
[f rep st] HISTORY AND PHYSICAL DATE OF ADMISSION: 06/23/2017 HISTORY OF PRESENT ILLNESS: The patient is a pleasant 76-year-old gentleman with a history of colon cancer with metastases to the lung and brain, who presents with a fall. He recently completed some w hole-brain radiation. He is also taking an oral chemotherapeutic agent called trifluridine/tipiracil . He has been eating and drinking poorly which he attributes to his chemotherapeutic agent. Last ni ght, he fell down. He had a couple falls actually. He does not describe any focal weakness. He yusuf s not describe palpitations or loss of consciousness, and then he was unable to get up and lay on the ground for a couple of hours. When he comes in here, he is alert and mentating. He has a history of known intracranial metastases as evidenced by MRI done here in April. He has not been on dexamethasone in quite some time. He did have a previous episode of having metastases wi th cognitive impairment, which he denies at this time. REVIEW OF SYSTEMS: Complete 10-point review of systems conducted, negative except as noted in the HP I. PAST MEDICAL HISTORY: 1. Likely atrial fibrillation. 2. BPH. 3. Colon cancer with metastases to the brain and lungs. ALLERGIES: Pollens and grasses. MEDICATIONS: At home; metoprolol, aspirin, finasteride, multivitamin, omeprazole and trifluridine/ti piracil chemotherapeutic agent. SOCIAL HISTORY: He quit smoking a number of years ago, like 30 years ago. He is originally from [place]. Denies alcohol. Works as a drug and alcohol counselor. Currently lives alone. He has a bro ther in town. FAMILY HISTORY: Parents . PHYSICAL EXAMINATION: VITAL SIGNS: Temp 36.6, blood pressure 138/107, pulse 75-124. Breathing 18 t imes a minute, 97% on room air. GENERAL: No acute distress. HEENT: Sclerae anicteric. Oropharynx clear. Mucous membranes moist. NECK: Supple without lymphadenopathy or JVD. LUNGS: Clear to aus cultation bilaterally. HEART: S1, S2. ABDOMEN: Soft, nontender, nondistended. LOWER EXTREMITIES: No edema. Calves nontender. He is notable for having some muscle wasting in his legs. NEUROLOGIC : Nonfocal. LABORATORY: Sodium 139, potassium 3.9, chloride 104, bicarb 20, BUN 22, creatinine 1.3 baseline, glu cose 106. CK slightly elevated at 924. Coags are normal. White count 3.8, hematocrit 32 baseline, platelets are 188,000. EKG: Initial EKG shows likely atrial fibrillation it 123 although it may be an SVT, it is fairly reg ular. There is a right bundle branch block pattern. Subsequent EKG showed sinus victoria with a simila r QRS morphology. He also has right atrial enlargement. This rate is low at 49. When I was in his room his rates were in the 40s. A noncontrast head CT performed by the emergency department shows interval progression of intracrania l metastatic disease on the right with increased vasogenic edema and [id number] shift, is about 7 mm. There was no bleeding. Chest x-ray interpreted by me, shows right lower lobe mass as well as right middle lobe. I discussed the case with Dr. Wiliam Meade. ASSESSMENT/PLAN: A 76-year-old gentleman with metastatic colon cancer presents with falls, elevated CK and abnormal EKG. 1. Falls. I suspect this is weakness related. Relatively benign neuro exam could given his head CT . We will have physical therapy and occupational therapy see him. 2. Intracranial metastases with midline shift. This is concerning. He received 10 mg of dexamethas one. I will continue him at to q.6. Neurosurgery will see him. He is not somnolent. 3. Bradycardia. The patient takes a beta ange. It certainly could be outbound telemarketing representative of elevated intracranial pressure and a [place] reflex however, given his 50 mg twice daily of metoprolol, I billy l go ahead and stop that and follow. We will follow him on telemetry. 4. Tachyarrhythmia. I suspect this is atrial fibrillation given his history. He is not anticoagula hakan. I will hold his metoprolol and follow. He may need alternative rate control if he is truly rap id. 5. Right lower lobe mass. I suspect this is evidence of his well known cancer with pulmonary metast ases. He has not had infectious symptoms, we will not treat with antibiotics. 6. Prophylaxis. Pharmacologic prophylaxis indicated. CODE STATUS: Do not resuscitate. DISPOSITION: Inpatient status. I have notified Dr. Wiliam Mathews of his admission. /[id number]/MODL
[2017-06-23] MEDS: DEXAMETHASONE 4 MG/ML VIAL IVP SCH ×2 (18:42→23:22)
[2017-06-23] MEDS ORDERED: GADOBUTROL 10 ML VIAL IVP ONE (21:07)
[2017-06-23] MEDS ORDERED: MELATONIN 3 MG TAB PO PRN (22:19)
[2017-06-23] MEDS ORDERED: DIAZEPAM 5 MG TAB PO ONE (23:12)
[2017-06-24 04:37] LABS: PLATELET COUNT 156 10^3/uL (150-400)
[2017-06-24 04:43] LABS: CREATINE KINASE 430 IU/L (0-224)
[2017-06-24] MEDS: DEXAMETHASONE 4 MG/ML VIAL IVP SCH ×3 (06:03→21:43)
--- NOTE | 2017-06-24 07:10 | NEUSURGPN ---
Assessment/Plan: Assessment: 76 yo male that is a patient of Dr Chand for metastatic colon cancer that presented to ED with weakness/balance issues Plan: -weakness and balance issues: started on decadron and pt states he feels a "bit better" -MRI of the brain was done after a CT that showed increased edema and mets that shows 3 lesions noted on the right sided to the right frontal, parietal and occipital lobes with associated shift -neuro stable -I will review the MRI with Dr Maldonado to see if we can offer any surgical treatments but likely will defer to Oncology/IM for medical management -Dr Maldonado saw patient yesterday and spoke with brother who is in agreement as well -call with any questions or concerns -pt understands and agrees Subjective: Awake and alert. NAD. Eating/drinking and voiding. No new complaints. No f/c /n/v/d. No dawkins/neck/chest/abd or gu complaints. Objective: AAO x 3, PERRLA/EOMI no droop CN 2-12 grossly intact +lt touch 5/5 BUE/BLE = Neuro Check Frequency: per routine Urinary Catheter in Place: No - Physician Discussed Patient with Dr.: Maldonado Neurosurgery Physical Exam - Vitals, I&O, Labs I and O 06/23/17 06/24/17 06/25/17 05:59 05:59 05:59 Intake Total 3200 Output Total 800 Balance 2400 Weight 50.7 kg Intake: Oral (ml) 200 IV Infused (ml) 3000 Ns 1,000 ml @ 125 mls/hr 1000 IV CONT LESLEY Rx#: [id number] Output: Urine (ml) 800 Bedside Commode 800 Other: Intake Quantity Yes Sufficient Number of Voids 3 Bedside Commode 2 Vital Signs Temp Pulse Resp BP Pulse Ox 36.6 C 39 L 12 171/83 H 100 06/24/17 04:00 06/24/17 04:00 06/24/17 04:00 06/24/17 04:00 06/24/17 04:00 Laboratory Results 06/24/17 03:43 06/24/17 03:43 ICD10 Worksheet Patient Problems: Problems Problem Status Onset Brain metastasis Acute Rhabdomyolysis Acute colon cancer Active
[2017-06-24] MEDS ORDERED: ASPIRIN EC 81 MG TAB PO SCH (09:00)
[2017-06-24] MEDS ORDERED: Herbals/Supplements -Info Only PO SCH (09:00)
--- NOTE | 2017-06-24 09:32 | PDMN ---
Medical Necessity Medical necessity: est los>2mn s/p fall r/t weakness, in setting of colon CA w/ intracranial mets w/midline shift, bradycardia, and tachyarrythmia; admit for IV Decadron, medication adjustments, PT/OT; other comorbidities of lung mets, likely afib; per order and H&P 06/23/17
[2017-06-24] MEDS: PANTOPRAZOLE SODIUM 40 MG TAB PO SCH ×2 (09:38→21:21)
[2017-06-24] MEDS: FINASTERIDE 5 MG TAB PO SCH (09:39)
[2017-06-24] MEDS: MULTIVITAMINS 1 EACH TAB PO SCH (09:39)
[2017-06-24] MEDS: ENOXAPARIN 30 MG/0.3 ML SYR SC SCH (09:41)
--- NOTE | 2017-06-24 14:18 | ASMTCMCOM ---
CM Note CM Note Notes: CM met w/ brother and discussed discharge plans. Therapies have been ordered. OT is recommending SNF. Brother would like a referral made to [facility]. Brother reports that pt has been there in the past and had a good experience. Brother would like a palliative. CM communicated this w/ Dr. Molina. Referral sent to [facility]. CM to follow. Plan: [facility] Date Signed: 06/24/2017 02:18 PM Electronically Signed By:ANNE-MARIE Lao
--- NOTE | 2017-06-24 14:37 | HOSPPROG ---
Hospitalist Progress Note Assessment/Plan: 76 yo male with hx of metastatic colon cancer with brain mets and hx of afib admitted s/p fall. Found to also have tachy/victoria #Metastatic colon cancer with new mets to right side of brain #Brain Mets with Vasogenic Edema, R -->L shift, and associated weakness #Tachy/Victoria with hx of Afib -Holding Metoprolol #s/p Fall. Hx indicative of due to neurological weakness. Unclear how much Bradycardia contributed, ?syncope #Leukopenia, no fever, no e/o infection. Negative ROS #Weakness, PT/OT eval #constipation, will start Mirilax Plan: -NS following, no planned interventions -Cards consult, I will call them -Hold Metoprolol -No AC given fall. I will also stop Aspirin. No hx of CAD -Cont Decadron -PT/OT -Start stool softner -Monitor Labs Subjective: Strengh is better. Walked with OT earlier. Still weak, but improving. No CP or SOB Objective: Vital Signs Temp Pulse Resp BP Pulse Ox 37.1 C 47 L 12 138/94 H 93 06/24/17 12:00 06/24/17 12:00 06/24/17 12:00 06/24/17 12:00 06/24/17 12:00 Laboratory Results 06/24/17 03:43 06/24/17 03:43 06/23/17 06/24/17 06/25/17 05:59 05:59 05:59 Intake Total 3200 Output Total 800 Balance 2400 PT 14.0 SEC (12.0-15.0) 06/23/17 13:37 INR 1.06 (0.83-1.16) 06/23/17 13:37 - Physical Exam Constitutional: no apparent distress, chronically ill appearing Eyes: PERRL, EOMI Ears, Nose, Mouth, Throat: moist mucous membranes, hearing normal Cardiovascular: bradycardia, No edema Respiratory: no respiratory distress, no rales or rhonchi Gastrointestinal: normoactive bowel sounds, soft, non-tender abdomen Skin: warm Musculoskeletal: generalized weakness Neurologic: AAOx3 Psychiatric: interacting appropriately, not anxious, not encephalopathic Lymph, Heme, Immunologic: No petechiae ICD10 Worksheet Patient Problems: Problems Problem Status Onset Brain metastasis Acute Rhabdomyolysis Acute colon cancer Active
--- NOTE | 2017-06-24 18:56 | GCON ---
[f rep st] CONSULTATION PRIMARY ONCOLOGIST: Aung Chand MD REASON FOR VISIT: Evaluation and management of colorectal cancer. HISTORY OF PRESENT ILLNESS: Ra is a 76-year-old gentleman who was initially diagnosed April 03 with a stage IIIB cancer. It was resected and then he received adjuvant FOLFOX chemotherapy but only tolerated 2 cycles and then had to stop due to side effects. July 2013, he developed metastati c disease and he was on panitumumab through early 2015. He had a brief trial of regular Afatinib, bu t then developed disease progression. Also during this time he had stereotactic radiotherapy to 2 pu lmonary nodules in June 2014. Since March 2016, he has been on LONSURF with stable disease an d reasonable tolerance. In October 2016, he was having some difficulty with getting lost while driving, disorientation, but no headaches or nausea, vomiting. Brain MRI revealed a 3.3 cm right parietal br ain met with surrounding vasogenic edema. He had this resected by Dr. Aris Corrigan and then adjuvant s tereotactic radiotherapy in January. He then resumed LONSURF in January. CT showed some possibl e progression but it was probably when he was off treatment. A followup MRI in April showed new a reas of intracranial disease including right occipital and right frontal lobe lesion with mild vasoge india edema. He was treated by Dr. Del Rio with 10 fractions of palliative whole-brain radiation. Thi s finished late April or early May. He was just seen in the office about a week ago, generall y doing well with no new neurologic symptoms. Last couple days, he has noticed he has been a bit mor e clumsy and his balance is off. He had about 2 or 3 falls, the last 1 he had difficulty getting up and it took him about an hour to work his way to his bedroom to where he could pull himself up into t he bed. He denied any nausea, vomiting, or headaches. Since admission he has been on dexamethasone and he thinks he is feeling better. ALLERGIES: Pollens and grass. HOME MEDICATIONS: Include LONSURF (trifluridine/tipiracil), multivitamins, omeprazole, metoprolol, a spirin, and finasteride. CHRONIC ILLNESSES: 1. Metastatic colon cancer as per HPI. 2. BPH. 3. History of atrial fibrillation. SURGICAL HISTORY: Primarily as per HPI. SOCIAL HISTORY: Originally from [place]. He is single, lives alone. He is a retired social case w josé miguel. He has a brother who lives locally. He previously smoked, not currently. He does not drink alcohol. FAMILY HISTORY: Positive for some renal carcinoma, but no family history of colorectal cancer. REVIEW OF SYSTEMS: 10-point review of systems performed. Pertinent positives HPI, otherwise negativ e. PHYSICAL EXAM: VITAL SIGNS: Temperature is 36.4, pulse is 51, blood pressure is 150/80. GENERAL: He is a chronically ill-appearing gentleman but he is awake and alert, in no distress. HEENT: Scler ae nonicteric. Extraocular muscles are intact. Oral mucosa is unremarkable. LUNGS: Clear. CARDIA C: Regular. ABDOMEN: Soft, nontender. NEUROLOGICAL: He has got good strength both upper and lowe r extremities with no focal findings. LABORATORY: On arrival, hemoglobin is 9.2, white count is 2000 with an ANC of 1700, platelet count i s normal. Chemistry panel, CK was up a little bit at 924, but that is already coming down to 430. Brain MRI, which I reviewed with Radiology, showed no acute bleed. There are 3 right cerebral metast ases involving the right frontal lobe, right parietal lobe and right occipital lobes with significant increasing vasogenic edema and mass-effect. The lesions seem to have increased in size. IMPRESSION: 1. Metastatic colon cancer. 2. Worsening brain metastasis with vasogenic edema. I spoke with Dr. Del Rio, who has reviewed the scan. Couple of these could possibly be considered fo r stereotactic radiotherapy. He is recommending we get him on steroids and then follow up and see ho w he does. If he is relatively stable, perhaps repeat the MRI in a few weeks. Although it seems a l ittle less likely it is possible this is a treatment effect result from the previous radiation that m ight improve with time. /[id number]/MODL
[2017-06-24] MEDS ORDERED: DEXAMETHASONE 4 MG TAB PO SCH (21:00)
[2017-06-25 04:25] LABS: PLATELET COUNT 146 10^3/uL (150-400)
[2017-06-25] MEDS: DEXAMETHASONE 4 MG/ML VIAL IVP SCH ×2 (05:52→12:12)
[2017-06-25] MEDS: PANTOPRAZOLE SODIUM 40 MG TAB PO SCH ×2 (10:17→20:31)
[2017-06-25] MEDS: MULTIVITAMINS 1 EACH TAB PO SCH (10:17)
[2017-06-25] MEDS: FINASTERIDE 5 MG TAB PO SCH (10:17)
[2017-06-25] MEDS: ENOXAPARIN 30 MG/0.3 ML SYR SC SCH (10:18)
--- NOTE | 2017-06-25 10:48 | NEUSURGPN ---
Assessment/Plan: Assessment: 76 yo male that is a patient of Dr Chand for metastatic colon cancer that presented to ED with weakness/balance issues Plan: -weakness and balance issues: started on decadron and pt states he feels significantly imporved -MRI of the brain was done after a CT that showed increased edema and mets that shows 3 lesions noted on the right sided to the right frontal, parietal and occipital lobes with associated shift -neuro stable -NS will not plan on any surgical intervention at this time. Patient understands. Dr Maldonado has discussed this with pts brother as well -NS will plan to sign off and follow peripherally if OK with hospitalits/onc. -OK for DC from NS standpoint -D/w Dr Maldonado -call with any questions or concerns -pt understands and agrees Subjective: Pt resting in bed, states he feels much improved Objective: AAOx3 NAD VSS MAEx4 Motor 5/5 BUE/BLE +LT Urinary Catheter in Place: No - Physician Discussed Patient with : [facility] Neurosurgery Physical Exam - Vitals, I&O, Labs I and O 06/24/17 06/25/17 06/26/17 05:59 05:59 05:59 Intake Total 3200 350 Output Total 800 Balance 2400 350 Weight 50.7 kg Intake: Oral (ml) 200 350 IV Infused (ml) 3000 Ns 1,000 ml @ 125 mls/hr 1000 IV CONT LESLEY Rx#: [id number] Output: Urine (ml) 800 Bedside Commode 800 Other: Intake Quantity Yes Yes Sufficient Number of Voids 3 Bedside Commode 2 Number of Stools Bedside Commode 1 Vital Signs Temp Pulse Resp BP Pulse Ox 36.4 C 38 L 18 153/81 H 100 06/25/17 07:51 06/25/17 07:51 06/25/17 07:51 06/25/17 07:51 06/25/17 07:51 Laboratory Results 06/25/17 03:29 06/25/17 03:29 ICD10 Worksheet Patient Problems: Problems Problem Status Onset Brain metastasis Acute Rhabdomyolysis Acute colon cancer Active
--- NOTE | 2017-06-25 13:31 | SOAPPROG ---
SOAP Progress Note Assessment/Plan: E&M colon cancer * Brain mets with increase vasogenic edema: started on steroids and doing better. will continue and then repeat MRI to see if truly progressing. I spoke with Dr. Quinones (xrt) and Dr. Chand. * Met. colon cancer: disease otherwise stable on Lonsurf. Will continue. Subjective: Upset that IV dex switched to PO without talking to him. Feeling ok. Would like to consider SNF after d/c. Objective: Vital Signs Temp Pulse Resp BP Pulse Ox 36.4 C 42 L 19 143/75 H 98 06/25/17 11:09 06/25/17 11:09 06/25/17 11:09 06/25/17 11:09 06/25/17 11:09 Laboratory Results 06/25/17 03:29 06/25/17 03:29 06/24/17 06/25/17 06/26/17 05:59 05:59 05:59 Intake Total 3200 350 Output Total 800 Balance 2400 350 PT 14.0 SEC (12.0-15.0) 06/23/17 13:37 INR 1.06 (0.83-1.16) 06/23/17 13:37 Physical Exam - Physical Exam General Appearance: no apparent distress ICD10 Worksheet Patient Problems: Problems Problem Status Onset Brain metastasis Acute Rhabdomyolysis Acute colon cancer Active
--- NOTE | 2017-06-25 14:23 | ASMTCMCOM ---
CM Note CM Note Notes: CM met w/ Karlos, brother for dispo planning. Karlos reports that pt cannot return home. Karlos reports that pt is unable to care for himself. Karlos reports that pt is forgetful and have been yelling at him. Karlos reports that he is the MDPOA. Karlos would like to obtain guardianship. CM provided Karlos w/ senior blue book and resource to obtain guardianship. Karlos reports that pt is not interested in going to [facility] at this time. CM communicated this info to and BEAU Comer. CM available for changes. Plan: TBD Date Signed: 06/25/2017 02:23 PM Electronically Signed By:ANNE-MARIE Lao
--- NOTE | 2017-06-25 15:12 | HOSPPROG ---
Hospitalist Progress Note Assessment/Plan: 76 yo male with hx of metastatic colon cancer with brain mets and hx of afib admitted s/p fall. Found to also have tachy/victoria. Per EMR Hr was 27. He appears to not be symptomatic. #Metastatic colon cancer with new mets to right side of brain #Brain Mets with Vasogenic Edema, R -->L shift, and associated weakness #Tachy/Victoria with hx of Afib -Holding Metoprolol #s/p Fall. Hx indicative of due to neurological weakness. Unclear how much Bradycardia contributed, ?syncope #Leukopenia, no fever, no e/o infection. Negative ROS #Weakness, PT/OT eval #constipation, will start Mirilax Plan: -NS following, no planned interventions -Cards consult pending -Hold Metoprolol -No AC given fall. Aspirin has been stopped. No hx of CAD -Cont Decadron -PT/OT -Start stool softners dispo: keep inpatient, will likely need SNF Subjective: thought he was going to be discharged today. Is upset. No CP or SOB. strenghth is improving Objective: Vital Signs Temp Pulse Resp BP Pulse Ox 36.4 C 42 L 19 143/75 H 98 06/25/17 11:09 06/25/17 11:09 06/25/17 11:09 06/25/17 11:09 06/25/17 11:09 Laboratory Results 06/25/17 03:29 06/25/17 03:29 06/24/17 06/25/17 06/26/17 05:59 05:59 05:59 Intake Total 3200 350 Output Total 800 Balance 2400 350 PT 14.0 SEC (12.0-15.0) 06/23/17 13:37 INR 1.06 (0.83-1.16) 06/23/17 13:37 - Physical Exam Constitutional: no apparent distress Eyes: PERRL, EOMI Ears, Nose, Mouth, Throat: moist mucous membranes, hearing normal Cardiovascular: regular rate and rhythym, No edema Respiratory: no respiratory distress Gastrointestinal: normoactive bowel sounds Skin: warm Musculoskeletal: generalized weakness Psychiatric: agitated Lymph, Heme, Immunologic: No petechiae ICD10 Worksheet Patient Problems: Problems Problem Status Onset Brain metastasis Acute Rhabdomyolysis Acute colon cancer Active
--- NOTE | 2017-06-25 15:21 | ASMTCMCOM ---
CM Note CM Note Notes: CM met w/ pt for dispo planning. Pt reported his frustration. by not being heard by the Dr. Choudhary. Pt was under the impression that he was being discharged today. Pt would like to take it one day at a time. Pt does not want to make the decision about going to [facility] today. Pt is requesting that staff be transparent w/ him regarding his d/c. CM to follow. Plan: TBD Date Signed: 06/25/2017 03:20 PM Electronically Signed By:ANNE-MARIE Lao
[2017-06-25] MEDS ORDERED: DEXAMETHASONE 2 MG TAB PO SCH (16:00)
[2017-06-25] MEDS: DEXAMETHASONE 4 MG TAB PO SCH ×2 (16:47→20:31)
[2017-06-25] MEDS: hydrALAZINE 20 MG/ML VIAL IVP PRN (17:41)
[2017-06-25] MEDS: ACETAMINOPHEN 325 MG TAB PO PRN (20:31)
[2017-06-25] MEDS: CYCLOBENZAPRINE 10 MG TAB PO PRN (20:34)
--- NOTE | 2017-06-25 21:52 | GCON ---
[f rep st] CONSULTATION REFERRING PHYSICIAN: Dr. Desai This is a 76-year-old male with colon cancer with metastasis to the lung and brain, who presents with a fall. The patient mentions that he recently had whole-brain radiation, and is taking chemotherapy. He has been eating and drinking poorly secondary to that, and has been feeling very weak and tired, after which he had a couple of falls without any loss of consciousness. He does not have any presyncope or syncope. No palpitations associated with it. He laid on the ground for a couple of hours, but he is very clear about the fact that he did not pass out. He just fell down. He is alert, oriented. He has a history of intracranial metastasis, and has been on dexamethasone. He was noted to have sinus bradycardia on his monitor. REVIEW OF SYSTEMS: Other than above is negative. PAST MEDICAL HISTORY: Benign prostatic hypertrophy, metastasis of the brain, bradycardia. ALLERGIES: To pollen and grasses. HOME MEDICATION: Metoprolol, aspirin, finasteride, multivitamin, omeprazole, and chemotherapeutic agents. SOCIAL HISTORY: Quit smoking a number of years ago. No alcohol use. Lives alone. Has a brother in town. FAMILY HISTORY: Noncontributory. PHYSICAL EXAMINATION: VITAL SIGNS: Temperature 36.6, blood pressure 130/70, pulse of 70, and dropping into the 40s. Oxygen saturation 97%. HEENT: Pupils equal, reacting to light, accommodating. Anicteric sclerae. NECK: No JVD. No thyromegaly. CHEST: Good air entry bilaterally. Equal. No rales, rhonchi , rub. S1, S2 regular. No murmurs. ABDOMEN: Soft, nontender. No guarding or rigidity. Bowel sounds present. EXTREMITIES: No edema. NEUROLOGIC: Nonfocal. DIAGNOSTIC STUDIES: White count of 3.8, platelet count 188,000. Creatinine 1.3 , bicarb is 20. EKG: Initial EKG showed tachycardia, likely SVT with right bundle branch aberrancy. Once that has resolved, the patient has sinus bradycardia. Last echocardiogram was in the hospital. Echocardiogram was performed in 2012, which showed normal EF with no significant valvular abnormality. IMPRESSION AND PLAN: This is a 76-year-old male with lung cancer with metastasis to the brain, who has been eating and drinking poorly, and secondary to that, had weakness and fell down a couple of times. The sinus bradycardia may be related to increased plasma levels of beta ange secondary to dehydration. Hence, at current point in time, considering his condition, we will stop the beta blockers and observe the patient. I have discussed this extensively with the patient, and he does not seem to merit a pacemaker at current point in time because his bradycardia appears to be mostly asymptomatic , and his falls are related more to his overall weakness. We will continue to monitor the patient with you. Thank you for letting us participate in the patient's care. /[id number]/MODL MTDD
[2017-06-26] MEDS: ACETAMINOPHEN 325 MG TAB PO PRN ×2 (02:56→22:53)
[2017-06-26] MEDS: CYCLOBENZAPRINE 10 MG TAB PO PRN ×2 (02:56→22:53)
[2017-06-26 04:36] LABS: PLATELET COUNT 133 10^3/uL (150-400)
[2017-06-26] MEDS: DEXAMETHASONE 4 MG TAB PO SCH ×4 (06:32→21:45)
[2017-06-26] MEDS: MULTIVITAMINS 1 EACH TAB PO SCH (10:35)
[2017-06-26] MEDS: FINASTERIDE 5 MG TAB PO SCH (10:35)
[2017-06-26] MEDS: ENOXAPARIN 30 MG/0.3 ML SYR SC SCH (10:35)
[2017-06-26] MEDS: PANTOPRAZOLE SODIUM 40 MG TAB PO SCH ×2 (10:35→21:45)
--- NOTE | 2017-06-26 12:50 | HOSPPROG ---
Hospitalist Progress Note Assessment/Plan: 76 yo male with hx of metastatic colon cancer with brain mets and hx of afib admitted s/p fall. Found to also have tachy/victoria. Per EMR Hr was 27. He appears to not be symptomatic. #Metastatic colon cancer with new mets to right side of brain #Brain Mets with Vasogenic Edema, R -->L shift, and associated weakness #Tachy/Victoria with hx of Afib, etiology is felt to be due to Metoprolol. Per Cards, no indication for pacemaker -Holding Metoprolol #s/p Fall. Hx indicative of due to neurological weakness. Unclear how much Bradycardia contributed, ?syncope #Leukopenia, no fever, no e/o infection. Negative ROS #Weakness, PT/OT #constipation, on Mirilax Plan: -NS following, no planned interventions -Cards consulted, no planned pacemaker, cont to hold Metoprolol -No AC given fall. Aspirin has been stopped. No hx of CAD -Cont Decadron -Will keep one additional night given bradycardia and still weak. Expect that he can discharge tomorrow to SNF -PT/OT Subjective: still not back to baseline. Assymptomatic bradycardia Objective: Vital Signs Temp Pulse Resp BP Pulse Ox 36.5 C 40 L 18 165/82 H 94 06/26/17 11:54 06/26/17 11:54 06/26/17 11:54 06/26/17 11:54 06/26/17 11:54 Laboratory Results 06/26/17 03:56 06/26/17 03:56 06/25/17 06/26/17 06/27/17 05:59 05:59 05:59 Intake Total 350 200 630 Balance 350 200 630 PT 14.0 SEC (12.0-15.0) 06/23/17 13:37 INR 1.06 (0.83-1.16) 06/23/17 13:37 - Physical Exam Constitutional: no apparent distress, not in pain Eyes: PERRL Ears, Nose, Mouth, Throat: moist mucous membranes, hearing normal Cardiovascular: bradycardia Respiratory: no respiratory distress, no rales or rhonchi, clear to auscultation Gastrointestinal: normoactive bowel sounds Skin: warm Musculoskeletal: generalized weakness Neurologic: AAOx3 Psychiatric: interacting appropriately, not anxious, not encephalopathic, thought process linear Lymph, Heme, Immunologic: No petechiae ICD10 Worksheet Patient Problems: Problems Problem Status Onset Brain metastasis Acute Rhabdomyolysis Acute colon cancer Active
[2017-06-26] MEDS ORDERED: POLYETHYLENE GLYCOL 3350 17 GM PKT PO PRN (16:23)
--- NOTE | 2017-06-26 16:43 | ASMTCMCOM ---
CM Note CM Note Notes: 06/26/2017 Case Management Note Met w/pt, brother Karlos and friend Jon to discuss need for SNF rehab. Pt stated he will make decision closer to d/c after consulting with MD. Pt stated he is current with [facility] providing unskilled care for 4 - 6 hours a day. Case Management did not confirm. If pt chooses home care rather than SNF, [facility] would be appropriate HC option. [facility] also has palliative and hospice services. Brother Karlos had lengthy conversation with Case Management seperately. Karlos expressed concerns regarding pt ability to live safely at home balanced with pt desire to return home. Discussed at length process for decisional capacity determination made by MD. Informed Karlos that decisional capacity changes and that at this time pt has not been deemed incapable of making decisions for himself, which leaves Karlos as MDPOA inappropriate. After discussing guardianship process, Karlos does not want to pursue at this time. Provided info for Karlos on [facility]. Pt would be able to live in [facility] living which pt or Karlos would pay out of pocket for $200-300 /day. Hospice Services would be covered by Medicare. Karlos requested case management not discuss hospice with patient. Case Management d/c poc: SNF vs HC pending pt decision. Case Management to follow. Date Signed: 06/26/2017 04:42 PM Electronically Signed By:Gela Oropeza RN
[2017-06-26] MEDS: hydrALAZINE 20 MG/ML VIAL IVP PRN (22:52)
[2017-06-27] MEDS: hydrALAZINE 20 MG/ML VIAL IVP PRN (03:42)
[2017-06-27] MEDS: DEXAMETHASONE 4 MG TAB PO SCH ×2 (06:49→12:30)
[2017-06-27] MEDS: ENOXAPARIN 30 MG/0.3 ML SYR SC SCH (08:50)
[2017-06-27] MEDS: PANTOPRAZOLE SODIUM 40 MG TAB PO SCH (08:50)
[2017-06-27] MEDS: FINASTERIDE 5 MG TAB PO SCH (08:50)
[2017-06-27] MEDS: MULTIVITAMINS 1 EACH TAB PO SCH (08:50)
[2017-06-27 11:50] VITALS: PULSE 50; RESP 16; TEMP 98.6; O2SAT 92
--- NOTE | 2017-06-27 11:59 | SOAPPROG ---
SOAP Progress Note Assessment/Plan: Assessment: Assessment/Plan: E&M colon cancer * Brain mets with increase vasogenic edema: started on steroids and doing better. will continue and then repeat MRI to see if truly progressing. I spoke with Dr. Quinones (xrt) and Dr. Chand. * Met. colon cancer: disease otherwise stable on Lonsurf. Will continue. Plan:To snf today, bradycardia noted 06/27/17 11:58 Subjective: Feels ok Objective: Vital Signs Temp Pulse Resp BP Pulse Ox 98.6 F 50 L 16 158/79 H 92 06/27/17 11:47 06/27/17 11:47 06/27/17 11:47 06/27/17 11:47 06/27/17 11:47 Laboratory Results 06/26/17 03:56 06/26/17 03:56 06/26/17 06/27/17 06/28/17 05:59 05:59 05:59 Intake Total 200 1640 250 Balance 200 1640 250 PT 14.0 SEC (12.0-15.0) 06/23/17 13:37 INR 1.06 (0.83-1.16) 06/23/17 13:37 ICD10 Worksheet Patient Problems: Problems Problem Status Onset Brain metastasis Acute Rhabdomyolysis Acute colon cancer Active
--- NOTE | 2017-06-27 12:29 | PDDCSUM ---
Discharge Summary Discharge Summary: 76 yo male with hx of metastatic colon cancer with brain mets and hx of afib admitted s/p fall. Found to also have tachy/victoria. Per EMR Hr was as low as 27. The etiology per Cardiology was felt to be due to dehydration and Metoprolol which was stopped. He has remained not symptomatic and his HR has been in the 40 's at the time of discharge. He is felt not to need a pacemaker per Cardiology Strength is improving but not back to baseline. He will discharge to SNF for further PT/OT BP was elevated on prior to d/c he got Lisinopril 10mg. this will be continued daily. DDX: #Metastatic colon cancer with new mets to right side of brain #Brain Mets with Vasogenic Edema, R -->L shift, and associated weakness #Tachy/Victoria with hx of Afib, etiology is felt to be due to Metoprolol. Per Cards, no indication for pacemaker -Holding Metoprolol #s/p Fall. Hx indicative of due to neurological weakness. Unclear how much Bradycardia contributed, ?syncope #Leukopenia, no fever, no e/o infection. Negative ROS #Hypertension: Lisinopril #Weakness, PT/OT #constipation, on Mirilax Exam: vss, some bradycardia, elevated bp rrr, bradycardia cta b s/nt/nd no le edema meds: see med rec f/u: with onc one week total time spent on discharge is 35 minutes
[2017-06-27] MEDS ORDERED: LISINOPRIL 10 MG TAB PO SCH (12:30)
--- NOTE | 2017-06-27 12:34 | PDIAF ---
- Diagnosis Diagnosis: fall, vasogenic edema. To SNF today Code Status: Do Not Resuscitate - Medication Management Discharge Medications: Medications to Continue on Transfer Finasteride [Proscar 5 MG (*)] 5 mg PO DAILY #0 02/07/16 [Last Taken 06/22/17] Herbals/Supplements -Info Only 1 ea PO DAILY 06/23/17 [Last Taken 06/23/17] Multivitamins [Multivitamin (*)] 1 each PO DAILY 06/23/17 [Last Taken 06/23/17] Omeprazole 20 mg PO BID 06/23/17 [Last Taken 06/23/17 09:00] Trifluridine/Tipiracil HCl [Lonsurf 20 mg-8.19 mg Tablet] 1 each PO AD 06/23/17 [Last Taken 06/22/17] Dexamethasone [Decadron 4 MG (*)] 4 mg PO QID #26 tab 06/27/17 [Last Taken Unknown] Lisinopril [Zestril 10 mg (*)] 10 mg PO DAILY #30 tab 06/27/17 [Last Taken Unknown] Polyethylene Glycol 3350 [Miralax 17 gm (*)] 17 gm PO Q24H PRN pkt 06/27/17 [ Last Taken Unknown] Discharge Medications: Refer to the Discharge Home Medication list for PRN reason. - Orders Services needed: Registered Nurse, Physical Therapy, Occupational Therapy Isolation Type: Chemotherapy Isolation Diet Recommendation: no restrictions on diet Diet Texture: Regular Texture Diet - Follow Up Care Current Providers and Referrals: Sancho Chand MD [Primary Care Provider] - As per Instructions
[2017-06-27] MEDS ORDERED: DOCUSATE SODIUM 100 MG CAP PO ONE (13:30)
[2017-06-27 13:51] VITALS: BP 171/74
--- NOTE | 2017-06-27 15:01 | ASDISCHSUM ---
Discharge Information Plan Status:SNF Medically Cleared to Leave:06/26/2017 Discharge Date:06/27/2017 02:40 PM CM D/C Disposition:[facility] Facility ADT D/C Disposition:[facility] Facility Projected Discharge Date:06/25/2017 11:00 AM Transportation at D/C:Wheelchair Van Discharge Delay Reason: Follow-Up Date:06/25/2017 11:00 AM Discharge Slot: Final Diagnosis: Placement Information Referral Type:*[facility]/SNF Referral ID:[id number] Provider Name:[facility] Address 1:[address] Address 2: City:[place] Selection Factors: State:[place] Patient Contact Information Contact Name:ANA Relationship: Address:[address] [address] Work Phone: [facility] Alternate Phone: [facility] [address]/Zip Code:[place] [address] Email: Financial Information Financial Class:Medicare Primary Plan Desc:MEDICARE INPATIENT Primary Plan Number:[id number] Secondary Plan Desc:MEDICA[place] Secondary Plan Number:[id number] Assessment Information LACE LACE Acuity / Level of Answers: Yes Care: Did the patient have an inpatient admission? Comorbidities - select Answers: Any tumor (including all that apply lymphoma or leukemia) History of falls # of Emergency department Answers: 1-2 visits in the last 6 months Score: 9 Date Signed: 06/23/2017 05:24 PM Electronically Signed By:Analisa Flores RN [facility] CM Progress Note CM Note CM Note Notes: Patient to be admitted with metastatic (brain and lung) colon cancer. Lives alone and has had several falls over the past 24 hours. Stopped Decadron 2 months ago. Swelling on head CT with shift, balance issues increasing. Patient lives alone in an apartment in [facility]. I have met with patient's brother Karlos while patient was in the restroom/prior to his transfer upstairs. He is very supportive and lives close by. Patient has a bilingual case manager with social work job titles, Joanne Alexander who has worked with patient for over 3 years. Karlos has contacted her regarding admission Patient has been resistant to "hospice" in the past and has desired to stay home without additional help. Karlos states that patient was at [facility] in December after surgery and did like his stay there. Karlos believes that patient may consider transition back to [facility] if he is eligible. I spoke with Karlos about possible palliative care consult while patient is in the hospital, if patient is open to this. Karlos believes that talking with and including Joanne (MAUREEN) may be helpful. CM to follow and be available with any discharge planning and referrals prn Date Signed: 06/23/2017 05:48 PM Electronically Signed By:Analisa Flores RN [facility] Progress Note CM Note CM Note Notes: CM met w/ brother and discussed discharge plans. Therapies have been ordered. OT is recommending SNF. Brother would like a referral made to [facility]. Brother reports that pt has been there in the past and had a good experience. Brother would like a palliative. CM communicated this w/ Dr. Molina. Referral sent to [facility]. CM to follow. Plan: [facility] Date Signed: 06/24/2017 02:18 PM Electronically Signed By:ANNE-MARIE Lao [facility] MAUREEN Progress Note CM Note CM Note Notes: CM met w/ Karlos, brother for dispo planning. Karlos reports that pt cannot return home. Karlos reports that pt is unable to care for himself. Karlos reports that pt is forgetful and have been yelling at him. [facility] Karlos would like to obtain guardianship. MAUREEN provided Karlos w/ blue book and resource to obtain guardianship. Karlos reports that pt is not interested in going to [facility] at this time. MAUREEN communicated this info to and BEAU Comer. MAUREEN available for changes. Plan: TBD Date Signed: 06/25/2017 02:23 PM Electronically Signed By:ANNE-MARIE Lao [facility] MAUREEN Progress Note CM Note CM Note Notes: CM met w/ pt for dispo planning. Pt reported his frustration. by not being heard by the Dr. Choudhary. Pt was under the impression that he was being discharged today. Pt would like to take it one day at a time. Pt does not want to make the decision about going to [facility] today. Pt is requesting that staff be transparent w/ him regarding his d/c. CM to follow. Plan: TBD Date Signed: 06/25/2017 03:20 PM Electronically Signed By:ANNE-MARIE Lao [facility] CM Progress Note CM Note CM Note Notes: 06/26/2017 Case Management Note Met w/pt, brother Karlos and friend Jon to discuss need for SNF rehab. Pt stated he will make decision closer to d/c after consulting with MD. Pt stated he is current with [facility] providing unskilled care for 4 - 6 hours a day. Case Management did not confirm. If pt chooses home care rather than SNF, [facility] would be appropriate HC option. [facility] also has palliative and hospice services. Brother Karlos had lengthy conversation with Case Management seperately. Karlos expressed concerns regarding pt ability to live safely at home balanced with pt desire to return home. Discussed at length process for decisional capacity determination made by MD. Informed Karlos that decisional capacity changes and that at this time pt has not been deemed incapable of making decisions for himself, which leaves Karlos as MDPOA inappropriate. After discussing guardianship process, Karlos does not want to pursue at this time. Provided info for Karlos on [place] [facility]. Pt would be able to live in [facility] living which pt or Karlos would pay out of pocket for $200-300 /day. Hospice Services would be covered by Medicare. Karlos requested case management not discuss hospice with patient. Case Management d/c poc: SNF vs HC pending pt decision. Case Management to follow. Date Signed: 06/26/2017 04:42 PM Electronically Signed By:Gela Oropeza RN Case Management Discharge Plan Note Case Management Discharge Discharge Order Complete? Answers: Yes Patient to Obtain Answers: Other Notes: [facility] Medications Transportation Arranged Answers: Other Notes: [employer] transport Transport will Pick (Date 06/27/2017 02:30 PM & Time) Agency/Facility Transfer Answers: Yes Report Printed & Faxed to Receiving Agency Family Notified Answers: Yes Notes: Brother Karlos aware Discharge Comments Notes: 06/27/2017 Case Management Note Pt to d/c to [facility]. Faxed final orders to [facility] via all scripts. Paulina arranged transportation through [employer]. Informed Paulina of tentative plan for [facility] when pt returns home after [facility]. RN to call report. There were no other case management d/c needs identified. Date Signed: 06/27/2017 02:57 PM Electronically Signed By:Gela Oropeza RN LACE LACE Length of stay for Answers: 3 days current admission Acuity / Level of Answers: Yes Care: Did the patient have an inpatient admission? Comorbidities - select Answers: Any tumor (including all that apply lymphoma or leukemia) Cerebrovascular disease (CVA, TIA, aneurysms, vasc ular dementia) Palliative care / End of life trajectory Other Notes: afib, HTN # of Emergency department Answers: 1-2 visits in the last 6 months Score: 13 Date Signed: 06/27/2017 03:00 PM Electronically Signed By:Gela Oropeza RN Intervention Information Intervention Type:*IM-Signed Date of Service:06/27/2017 01:20 PM Patient Type:Inpatient Staff Member:BEAU Oropeza Hillary Hours:0.25 Discipline: Severity: Comment:
== END 2017-06-27 14:40 | DRG 54 ==
LOC: F2W 17:45
PROVIDERS: ADMIT Internal Medicine; ATTEND Internal Medicine
DX: C79.31 Secondary malignant neoplasm of brain (principal); G93.6 Cerebral edema; C78.01 Secondary malignant neoplasm of right lung; E86.0 Dehydration; R00.1 Bradycardia, unspecified; I10 Essential (primary) hypertension; K59.00 Constipation, unspecified; R29.6 Repeated falls; Z66 Do not resuscitate; Z87.891 Personal history of nicotine dependence
CPT/HCPCS: 97116-GP; 97161-GP; 97166-GO; 97530-GO; 97530-GP; 97535-GO; A9585; G8978-GP-CI; G8979-GP-CI; G8980-GP-CI; G8987-GO-CK; G8988-GO-CI; J0360; J1100; J1650